=== PATIENT | female | born 1935 | race Caucasian/White ===

== ENCOUNTER 2020-11-25 08:03 | Day surgery (SDC) | payer MEDICARE, BC ==
[2020-11-25] MEDS ORDERED: ceFAZolin 1 GM Vial IV ONE (08:04)
[2020-11-25] MEDS ORDERED: Propofol 200 MG/20 ML SDV IV ONE (08:04)
[2020-11-25] MEDS ORDERED: Sodium Chloride 0.9% 10 ML Syringe FLUSH PRN (08:15)
[2020-11-25] MEDS: Lactated Ringers 1,000 ML IV SCH (09:17)
[2020-11-25] MEDS: Lidocaine 1% 20 ML MDV INJECT ONE (12:05)
--- NOTE | 2020-11-25 12:20 | PCM.HPR ---
H & P Addendum review - H & P Addendum Review Date of Original H & P: 11/10/20 Date Reviewed: 11/25/20 Time Reviewed: 11:30 Patient was Examined: No Changes
--- NOTE | 2020-11-25 12:21 | PCM.OPNOTE ---
- General Post-Op/Procedure Note Date of Surgery/Procedure: 11/25/20 Operative Procedure(s): L CTR Pre Op Diagnosis: L CTS Post-Op Diagnosis: Same Anesthesia Technique: Local, MAC Primary Surgeon: Dami Larkin Complications: None Condition: Good
[2020-11-25 13:15] VITALS: BP 170/70; PULSE 73
--- NOTE | 2020-11-25 16:01 | OR ---
DATE OF OPERATION: 11/25/2020 SURGEON: Dami Larkin MD PREOPERATIVE DIAGNOSIS: Left carpal tunnel syndrome. POSTOPERATIVE DIAGNOSIS: Left carpal tunnel syndrome. PROCEDURE: Left carpal tunnel release. ANESTHESIA: Local MAC. PROCEDURE IN DETAIL: The patient was brought to the operating room, where IV sedation was administered. Left arm was exsanguinated and tourniquet inflated and was prepped and draped sterilely. 3 mL of 1% lidocaine was used for local anesthesia. The palmar crease was infiltrated, and a skin incision made over the transverse carpal ligament. The incision was then extended through the palmar aponeurosis and subcutaneous tissue until the transverse carpal ligament was identified. This was sharply incised until the median nerve was visible. The ligament was split distally into the palm and proximally into the wrist. Finger palpation and inspection revealed all constricting bands to be released. The wound was irrigated and skin closed with interrupted 4-0 Prolene vertical mattress sutures. Antibiotic ointment and a sterile bulky pressure dressing were applied. The patient tolerated the procedure well. Blood loss none. She returned to postanesthesia in stable condition. /[id number] DARNELL/AMIRA
== END 2020-11-25 13:30 | disposition home or self-care (01) ==
LOC: FB.SDS 08:03
PROVIDERS: ATTEND Surgery
DX: G56.02 Carpal tunnel syndrome, left upper limb (principal); I12.9 Hypertensive chronic kidney disease with stage 1 through stage 4 chronic kidney disease, or unspecified chronic kidney disease; N18.30 Chronic kidney disease, stage 3 unspecified; Z79.899 Other long term (current) drug therapy
CPT/HCPCS: 01810-QZ; J0690; J2704; J7120